=== PATIENT | male | born 2005 | race Two or more races ===

== ENCOUNTER → 2024-07-24 | Outpatient (CLI) | payer BC, MEDICAID, SELFPAY ==
--- NOTE | 2024-07-24 12:10 | XR_ITS ---
Examination: Foot, left, 3 views Technique: AP, oblique, lateral views foot, 3 views Date and time of exam: July 24, 2024 1236 hours Comparison June 05, 2024 INDICATIONS: Acute fracture fifth metatarsal June 05, 2024 FINDINGS: No significant bony union at the fracture site base fifth metatarsal No new fractures IMPRESSION: No significant bony union at the fracture site fifth metatarsal, suggest continued follow-up to exclude nonunion
== END | disposition home or self-care (01) ==
PROVIDERS: PCP Physician Assistant; Referring Provider Physician Assistant; Visit Provider Physician Assistant
DX: S92.355D Nondisplaced fracture of fifth metatarsal bone, left foot, subsequent encounter for fracture with routine healing (principal); X58.XXXD Exposure to other specified factors, subsequent encounter
CPT/HCPCS: 73630